=== PATIENT | male | born 2000 | race African-American/Black ===

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

== ENCOUNTER 2021-11-12 23:53 | Emergency (ER) | payer MEDICAID ==
[~2021-11-12] VITALS: Ht 180.3 cm; Wt 82.3 kg
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
[2021-11-13] MEDS ORDERED: HYDROcodone/APAP 5/325MG 1 TAB TABLET PO ONE (00:30)
[2021-11-13] MEDS ORDERED: HYDR-2761 PO (01:00)
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
[2021-11-13] MEDS ORDERED: oxyCODONE/APAP 5/325 1 TAB TABLET PO ONE (03:30)
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
[2021-11-13 04:10] VITALS: BP 129/75
== END 2021-11-13 04:13 | disposition home or self-care (01) ==
LOC: ER 23:53
DX: S90.31XA Contusion of right foot, initial encounter (principal); V03.90XA Pedestrian on foot injured in collision with car, pick-up truck or van, unspecified whether traffic or nontraffic accident, initial encounter; Y93.89 Activity, other specified; Y92.488 Other paved roadways as the place of occurrence of the external cause; Y99.8 Other external cause status
CPT/HCPCS: 73610; 73630; 73700; 99284-25